=== PATIENT | male | born 1950 | race Caucasian/White ===

== ENCOUNTER → 2020-11-18 09:05 | Outpatient (BNVA) | payer MEDICARE, SELFPAY | PROVIDERS: Family Provider Nurse Practitioner Family; PCP Nurse Practitioner Family; Visit Provider Nurse Practitioner Family | DX: I10 Essential (primary) hypertension (principal); I48.0 Paroxysmal atrial fibrillation | CPT/HCPCS: 80053; 80061; 85025; 85610 ==

== ENCOUNTER → 2021-02-17 09:09 | Outpatient (BNVA) | payer OTHER, MEDICARE, SELFPAY | PROVIDERS: Family Provider Nurse Practitioner Family; PCP Nurse Practitioner Family; Visit Provider Nurse Practitioner Family | DX: R63.5 Abnormal weight gain (principal); Z79.899 Other long term (current) drug therapy; Z79.01 Long term (current) use of anticoagulants; I48.0 Paroxysmal atrial fibrillation | CPT/HCPCS: 80053; 84443; 85610 ==

== ENCOUNTER 2021-11-17 11:54 | Outpatient (CLI) | payer OTHER, MEDICARE, SELFPAY ==
--- NOTE | 2021-11-17 12:45 | USCV_ITS ---
Rolf Bowie Age: 71 Gender: M : 1950 Exam Date: 11/17/2021 12:29 Ordering Phys: Sara Parks MD ([email or web address]) Technologist: LUCY Exam Location: [facility] [place] Indication: Shortness of breath BP: 140 / 80 HR: 78 Rhythm: Sinus Technical Quality: Technically difficult study MEASUREMENTS (Male / Female) Normal Values 2D ECHO LVOT Diameter 2.0 cm LV Ejection Fraction MOD 2C 50.1 % LV Ejection Fraction 2C AL 51.1 % LA Diameter 3.7 cm LA Width 5.0 cm LA Height 5.1 cm Aorta at Sinotubular Diameter 2.5 cm M-MODE Aortic Annulus Diameter 2.7 cm LA Ao Ratio MM 1.4 MV E Point Septal Separation 0.4 cm DOPPLER AV Peak Velocity 161.0 cm/s LVOT Peak Velocity 74.0 cm/s AV Area Cont Eq vti 1.7 cm squared AV Area Cont Eq pk 1.4 cm squared MV Area PHT 4.3 cm squared MV E' Velocity 97.0 cm/s Mitral E to LV E' Septal Ratio 10.4 TR Peak Velocity 237.0 cm/s TR Peak Gradient 22.5 mmHg TV Peak E Velocity 56.0 cm/s Right Atrial Pressure 8.0 mmHg Pulmonary Artery Systolic Pressu 30.5 mmHg PV Peak Velocity 79.0 cm/s RV Acceleration Time 0.1 s RV Ejection Time 0.3 s RV AcT/ET 0.3 FINDINGS Left Ventricle Possibly normal LV size and ejection fraction. Could not evaluate for segmental wall motion because of the poor ultrasonic window Right Ventricle Right ventricle not well visualized. Right Atrium Right atrium appears to be mildly dilated Left Atrium Mildly increased left atrial size. Mitral Valve Thickened mitral valve. Mild mitral annular calcification. Aortic Valve Thickened aortic valve. Tricuspid Valve Tricuspid valve not well visualized. Pulmonic Valve Pulmonic valve not well visualized. Pericardium No pericardial effusion. Aorta Normal aortic annulus size. CONCLUSIONS Possibly normal LV size and ejection fraction. Could not evaluate for segmental wall motion because of the poor ultrasonic window. Thickened mitral valve. Mild mitral annular calcification. Mild biatrial enlargement Thickened aortic valve with features of aortic valve sclerosis. Technically difficult study because of the poor ultrasonic window. Dr Arline Rodriguez MD FACC (Electronically Signed) Final Date: 17 November 2021 14:15 S
== END 2021-11-17 11:55 | disposition home or self-care (01) ==
LOC: RAD 11:59
PROVIDERS: PCP Nurse Practitioner Family; Visit Provider Internal Medicine Cardiovascular Disease
DX: R06.02 Shortness of breath (principal); I08.0 Rheumatic disorders of both mitral and aortic valves
CPT/HCPCS: 93306

== ENCOUNTER → 2022-05-24 15:33 | Outpatient (BNVA) | payer OTHER, SELFPAY | PROVIDERS: PCP Nurse Practitioner Family; Visit Provider Internal Medicine | DX: I48.20 Chronic atrial fibrillation, unspecified (principal); I47.2 Ventricular tachycardia; E11.9 Type 2 diabetes mellitus without complications; I25.5 Ischemic cardiomyopathy; Z87.891 Personal history of nicotine dependence | CPT/HCPCS: 99214 ==

== ENCOUNTER → 2022-07-05 09:23 | Outpatient (BNVA) | payer MEDICARE, SELFPAY | PROVIDERS: PCP Nurse Practitioner Family; Visit Provider Nurse Practitioner Family | DX: I10 Essential (primary) hypertension (principal); E78.5 Hyperlipidemia, unspecified; Z23 Encounter for immunization; Z79.01 Long term (current) use of anticoagulants | CPT/HCPCS: 80053; 80061; 85025 ==

== ENCOUNTER → 2023-05-05 09:31 | Outpatient (BNVA) | payer MEDICARE, SELFPAY | PROVIDERS: PCP Nurse Practitioner Family; Visit Provider Nurse Practitioner Family | DX: I25.118 Atherosclerotic heart disease of native coronary artery with other forms of angina pectoris (principal); I10 Essential (primary) hypertension; I48.0 Paroxysmal atrial fibrillation; Z79.01 Long term (current) use of anticoagulants; Z87.891 Personal history of nicotine dependence | CPT/HCPCS: 99214 ==

== ENCOUNTER → 2023-08-03 13:23 | Outpatient (BNVA) | payer OTHER, SELFPAY | PROVIDERS: PCP Nurse Practitioner Family; Visit Provider Nurse Practitioner Family | DX: L57.0 Actinic keratosis (principal); L30.0 Nummular dermatitis; L57.8 Other skin changes due to chronic exposure to nonionizing radiation; D22.39 Melanocytic nevi of other parts of face | CPT/HCPCS: 17000; 99214 ==

== ENCOUNTER → 2023-11-09 15:42 | Outpatient (BNVA) | payer OTHER, SELFPAY | PROVIDERS: PCP Nurse Practitioner Family; Visit Provider Internal Medicine | DX: I48.0 Paroxysmal atrial fibrillation (principal); I10 Essential (primary) hypertension; I25.118 Atherosclerotic heart disease of native coronary artery with other forms of angina pectoris; Z87.891 Personal history of nicotine dependence; Z79.01 Long term (current) use of anticoagulants | CPT/HCPCS: 99214 ==

== ENCOUNTER 2023-12-19 18:15 | Emergency (ER) | payer OTHER, SELFPAY ==
[2023-12-19 18:35] VITALS: BP 170/82; PULSE 54; RESP 17; TEMP 36.7; O2SAT 91; BMI 42.3
--- NOTE | 2023-12-19 18:43 | ECG_ITS ---
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 Measurements Intervals [place] Rate: 49 P: 0 TX: 0 QRS: -5 QRSD: 98 T: 99 QT: 427 QTc: 389 Interpretive Statements ATRIAL FIBRILLATION WITH SLOW VENTRICULAR RESPONSE LOW QRS VOLTAGE IN EXTREMITY LEADS [QRS DEFLECTION < 0.5 mV IN LIMB LEADS] MINIMAL ST DEPRESSION [0.025+ mV ST DEPRESSION] ABNORMAL QRS-T ANGLE [QRS-T AXIS DIFFERENCE > 60] Compared to ECG 06/15/2018 05:47:06 Low QRS voltage now present ST (T wave) deviation still present Electronically Signed On 12-20-2023 9:17:07 CDT by Reynaldo Freire M.D. [id number]
--- NOTE | 2023-12-19 18:43 | XRR_ITS ---
PROCEDURE INFORMATION: Exam: XR Chest Exam date and time: 12/19/2023 6:47 PM Age: 73 years old Clinical indication: Shortness of breath; Additional info: Dyspnea TECHNIQUE: Imaging protocol: Radiologic exam of the chest. Views: 1 view. COMPARISON: CR XR chest 1V [id number] 06/13/2018 4:20 AM FINDINGS: Lungs: Stable mild interstitial prominence, chronic. No consolidation. Pleural spaces: No pleural effusion or pneumothorax. Heart/Mediastinum: Heart size is within normal limits. Vasculature: Atherosclerotic calcifications of the aorta are noted. Diaphragm: Stable elevation of the right hemidiaphragm. Bones/joints: Unremarkable. XR/XR chest 1V portable [id number] IMPRESSION: No acute cardiopulmonary disease.
[2023-12-19 19:11] LABS: Basophils % 0.4 %; Eosinophils # 0.2 10^3/uL (0.0-0.8); Eosinophils % 1.5 %; Hematocrit 45.5 % (37-53); Lymphocytes # 2.1 10^3/uL (0.8-4.8); Mean Corpuscular HGB Conc 33.8 g/dL (30-55); Mean Corpuscular Hemoglobin 29.4 pg (27-33); Mean Platelet Volume 10.6 fL (7.4-10.4); Monocytes % 8.6 %; Neutrophils # 7.79 10^3/uL (1.8-7.7); Neutrophils % 70.1 %; Nucleated Red Blood Cells % 0 %; Platelet Count 190 10^3/cmm (157-399); Red Blood Count 5.23 10^6/uL (3.85-5.65)
[2023-12-19 19:37] LABS: Alanine Aminotransferase 18 U/L (0-41); Alkaline Phosphatase 118 U/L (40-130); Aspartate Amino Transferase 15 U/L (0-40); Blood Urea Nitrogen 16 mg/dL (8-23); Calcium 9.8 mg/dL (8.5-10.5); Carbon Dioxide 28 mmol/L (22-29); Chloride 103 mmol/L (98-107); Creatinine Clr Calc Pharmacy 100.0368; Globulin 3.5 g/dL (1.3-4.6); Glucose 122 mg/dL (65-115); Osmolality Calculated 298 mOsm/kg (285-295); Sodium 143 mmol/L (136-145); Total Bilirubin 0.6 mg/dL (0.15-1.2); Total Protein 7.5 g/dL (6.6-8.7)
--- NOTE | 2023-12-19 20:03 | ED_ITS ---
HPI - SOB/Dyspnea 2 General: Chief Complaint: Shortness of Breath/Dyspnea Stated Complaint: Dizziness,SOB Time Seen by Provider: 12/19/23 18:44 History of Present Illness: HPI Narrative: Patient presents to the ER after being asleep on the floor wake up gasping choking for air. Patient has a history of doing this multiple times in the last couple days. Patient says that they have suggested [facility] but is has not [facility] that up yet. Patient does have a history of A-fib with cardiac stents. Patient says he gets them intermittently short of breath with exertion but denies chest pain. Patient denies any complaints at this time. Review of Systems 2 General: Reports: 10 or more systems reviewed and unremarkable except in HPI and below PFSH ED 2 PFSH: Medical History DISH (diffuse idiopathic skeletal hyperostosis) History of myocardial infarction Anxiety CAD (coronary artery disease) Atrial fibrillation HTN (hypertension) Surgical History S/P appendectomy S/P PTCA (percutaneous transluminal coronary angioplasty) S/P bilateral cataract extraction Family History Mother Hypertension Diabetes Father , MD age 49 Hypertension Myocardial infarction Other CAD (coronary artery disease) Social History Smoking and tobacco/nicotine status: former use of tobacco/nicotine Physical Exam 2 Const: COMMON NORMALS: no acute distress, average body habitus, patient oriented x3, no limitations, healthy appearing, alert and well nourished HENMT: COMMON NORMALS: normocephalic, atraumatic, hearing grossly normal bilaterally, external ears normal, Normal external nose present, moist oral mucous membranes and oropharynx normal HEAD & SCALP: normocephalic and atraumatic NOSE: Normal external nose present EXTERNAL EAR: Yes external ears normal Neck/C-Spine: COMMON NORMALS: full ROM, no lymphadenopathy, supple, no meningeal signs, no JVD and Thyroid normal THYROID: Thyroid normal Chest: COMMONS NORMALS: normal inspection of the chest and normal palpation of entire chest wall Resp: COMMON NORMALS: normal respiratory effort, No retractions, No use of accessory muscles and clear to auscultation bilaterally AUSCULTATION: clear to auscultation bilaterally Cardio: COMMON NORMALS: no JVD, regular rate, regular rhythm, S1 normal heart sound present, S2 normal heart sound present, No gallops present (Cardio), No clicks present (Cardio), No murmurs present (Cardio) and No rub (Cardio) R ATE: regular rate RHYTHM: regular rhythm HEART SOUNDS: S1 normal heart sound present and S2 normal heart sound present GI: COMMON NORMALS: Normal to inspection, nondistended, normoactive bowel sounds present, Soft to palpation, non-tender, No hepatosplenomegaly present and no masses PALPATION: Yes Soft to palpation and Yes No hepatosplenomegaly present Neuro: COMMON NORMALS: patient oriented x3 SENSORIUM/ORIENTATION: Yes alert MENINGEAL SIGNS: Yes no meningeal signs Course 2 Vital Signs: Vital signs: Vital Signs Temperature 98.0 F 12/19/23 18:35 Pulse Rate 54 L 12/19/23 18:35 Respiratory Rate 18 12/19/23 21:12 Blood Pressure 119/77 12/19/23 21:12 Pulse Oximetry 91 12/19/23 18:35 Oxygen Delivery Me thod Room Air 12/19/23 18:35 MDM - SOB/Dyspnea Medical Decision Making Case management was consulted for referral to pulmonology/sleep study for sleep apnea patient physical evaluation as well as lab work and chest x-ray, all of which was essentially benign. It sounds like patient's been having sleep apnea type episodes. Patient will be referred to pulmonology for sleep study. Patient be discharged from ER. Differential Diagnosis Unlikely acute exacerbation of chronic obstructive airways disease, congestive heart failure, community acquired pneumonia, asthma with exacerbation or pulmonary embolism Medical Records I reviewed the patient's medical records. Lab Data I reviewed the patient's lab results. 12/19/23 18:56 12/19/23 18:56 Labs/Radiology: Radiology Impressions Chest X-Ray 12/19/23 18:43 IMPRESSION: No acute cardiopulmonary disease. Laboratory Results WBC 11.10 10^3/uL (3.29-11.43) 12/19/23 18:56 RBC 5.23 10^6/uL (3.85-5.65) 12/19/23 18:56 Hgb 15.40 g/dL (11.27-16.99) 12/19/23 18:56 Hct 45.5 % (37-53) 12/19/23 18:56 MCV 87.0 fl (82-101) 12/19/23 18:56 MCH 29.4 pg (27-33) 12/19/23 18:56 MCHC 33.8 g/dL (30-55) 12/19/23 18:56 RDW 14.0 % (12.1-15.1) 12/19/23 18:56 Plt Count 190 10^3/cmm (157-399) 12/19/23 18:56 MPV 10.6 fL (7.4-10.4) H 12/19/23 18:56 Neut % (Auto) 70.1 % 12/19/23 18:56 Lymph % (Auto) 19.0 % 12/19/23 18:56 [place] % (Auto) 8.6 % 12/19/23 18:56 Eos % (Auto) 1.5 % 12/19/23 18:56 Baso % (Auto) 0.4 % 12/19/23 18:56 Neut # (Auto) 7.79 10^3/uL (1.8-7.7) H 12/19/23 18:56 Lymph # (Auto) 2.1 10^3/uL (0.8-4.8) 12/19/23 18:56 [place] # (Auto) 1.0 10^3/uL (0.2-0.9) H 12/19/23 18:56 Eos # (Auto) 0.2 10^3/uL (0.0-0.8) 12/19/23 18:56 Baso # (Auto) 0.0 10^3/uL (0.0-0.1) 12/19/23 18:56 Nucleated RBC % (auto) 0 % 12/19/23 18:56 Nucleated RBCs # 0.0 /100WBC 12/19/23 18:56 Sodium 143 mmol/L (136-145) 12/19/23 18:56 Potassium 4.0 mmol/L (3.5-5.1) 12/19/23 18:56 Chloride 103 mmol/L (98-107) 12/19/23 18:56 Carbon Dioxide 28 mmol/L (22-29) 12/19/23 18:56 Anion Gap 16.0 (5-19) 12/19/23 18:56 BUN 16 mg/dL (8-23) 12/19/23 18:56 Creatinine 0.6 mg/dL (0.7-1.2) L 12/19/23 18:56 GFR Calculation Not Reportable 12/19/23 18:56 Glucose 122 mg/dL (65-115) H 12/19/23 18:56 Calculated Osmolality 298 mOsm/kg (285-295) H 12/19/23 18:56 Calcium 9.8 mg/dL (8.5-10.5) 12/19/23 18:56 Total Bilirubin 0.6 mg/dL (0.15-1.2) 12/19/23 18:56 AST 15 U/L (0-40) 12/19/23 18:56 ALT 18 U/L (0-41) 12/19/23 18:56 Alkaline Phosphatase 118 U/L (40-130) 12/19/23 18:56 Total Protein 7.5 g/dL (6.6-8.7) 12/19/23 18:56 Albumin 4.0 g/dL (3.5-5.2) 12/19/23 18:56 Globulin 3.5 g/dL (1.3-4.6) 12/19/23 18:56 All radiology interpretation(s) finalized by discharge Discharge Plan Discharge Patient Disposition: Home Clinical Impression: Sleep apnea in adult, Breath shortness Condition: Stable Prescriptions: No Action cetirizine [Zyrtec] 10 mg tablet 10 mg PO DAILY amlodipine 5 mg tablet 5 mg PO .HS Qty: 90 3RF carvedilol 3.125 mg tablet 3.125 mg PO BID Qty: 180 3RF isosorbide mononitrate 30 mg tablet extended release 24 hr 30 mg PO DAILY Qty: 90 3RF losartan 100 mg tablet 150 mg PO DIRECTED Qty: 135 3RF Rx Instructions: 100mg AM and 50mg PM cholecalciferol (vitamin D3) 25 mcg (1,000 unit) capsule 25 mcg PO DAILY fluticasone propionate [Allergy Relief (fluticasone)] 50 mcg/actuation spray,suspension 1 spray intranasal DAILY Rx Instructions: administer into each nostril ipratropium bromide 42 mcg (0.06 %) spray,non-aerosol 2 spray intranasal BID Qty: 15 5RF Rx Instructions: Starting dose will be 2 puffs on each side of the nose twice daily. Can vary from once daily up to 4 times daily rivaroxaban 20 mg tablet 20 mg PO DAILY Qty: 90 3RF Rx Instructions: must administer with evening meal mupirocin 2 % ointment 1 applic topical BID Qty: 15 1RF alprazolam [Xanax] 0.25 mg tablet 0.25 mg PO DAILY PRN (Reason: anxiety) Qty: 30 0RF pravastatin 80 mg tablet 80 mg PO DAILY Qty: 90 1RF Discharge Orders: Discharge ED (Routine); Ordered 12/19/23 Ordered By: Rakesh Asif Referrals: Shaye Enrique FNP [Primary Care Provider] - 1 week Patient Instructions: Shortness of Breath (ED), Obstructive Sleep Apnea Activity Restrictions/Additional Instructions: Your evaluation in ER that included lab work, EKG and x-ray did not show any acute cause of your shortness of breath. Upon further discussion of your history it sounds like you may have sleep apnea. Case management has been consulted to refer you to pulmonology for sleep study. You may be receiving a call from them in the morning to arrange this. Otherwise please follow-up with your family proximal physician within the next 7 to 10 days for further evaluation treatment as needed. Coding Level of Care Code ED Safekeeping Clerk for Trav Pierce
[2023-12-19 21:11] VITALS: BP 119/77; RESP 18
[2023-12-19 21:12] VITALS: BP 119/77; RESP 18
--- NOTE | 2023-12-20 07:31 | DCPLANNER ---
Message sent to pulmonrudy for follow upand sleep study
== END 2023-12-19 21:14 | disposition home or self-care (01) ==
PROVIDERS: Emergency Provider Emergency Medicine; PCP Nurse Practitioner Family
DX: G47.30 Sleep apnea, unspecified (principal); R06.02 Shortness of breath; Z87.891 Personal history of nicotine dependence; I25.10 Atherosclerotic heart disease of native coronary artery without angina pectoris; I10 Essential (primary) hypertension; I25.2 Old myocardial infarction
CPT/HCPCS: 36415; 71045; 80053; 85025; 93005; 99285

== ENCOUNTER 2023-12-25 09:25 | Outpatient (CLI) | payer OTHER, SELFPAY ==
--- NOTE | 2023-12-25 10:22 | ECG_ITS ---
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 Interpretive Statements NAME OF STUDY: LEXISCAN SESTAMIBI STRESS TEST INDICATION: [CP/SOB, ] Procedure: At the baseline, the blood pressure was 153/95 mmHg with a heart rate of 52 bpm. The electrocardiogram showed atrial fibrillation with slow ventricular rate. No ST-T wave changes. The Lexiscan was infused over a period of 20 seconds. A total of 0.4 mg of Lexiscan was infused. The stress phase was continued for a total of 5 minutes. Heart rate was at the end of stress phase was 60 bpm and a blood pressure of 156/87 mmHg. The EKG at the peak infusion revealed atrial fibrillation. At 1 point patient had significant atrial fibrillation with slow ventricular rate and heart rate 21 bpm. This was transient. There was a pause of close to 4 seconds. Heart rate recovered. Sestamibi was injected 20 seconds after the Lexiscan infusion. Blood pressure at the end of recovery phase was 148/85 mmHg with a heart rate of 65 bpm. Conclusion: 1. No significant ST-T wave changes with Lexiscan infusion however patient had developed bradycardia with heart rate of 21 bpm transiently. It recovered quickly. 2. No Lexiscan induced chest pain or cardiac arrhythmia. 3. Normal blood pressure response. 4. Sestamibi/sestamibi perfusion scan pending; see separate report. Electronically Signed On 01-04-2024 12:07:17 CDT by Reynaldo Freire M.D. [id number]
--- NOTE | 2023-12-25 10:23 | NMCV_ITS ---
NM dawood perf SPECT r/s* [id number] Rolf Bowie Age: 73 Gender: M : 1950 Exam Date: 12/25/2023 10:51 Ordering Phys: Reynaldo Freire M.D ([email or web address]) Technologist: DRU Ward Exam Location: [facility] Indications: CHEST PAIN STRESS TEST [facility] IMAGE PROTOCOL Rest/Stress 1 Lexiscan Day Radiopharmaceutical Dose (mCi) Administration Site Administered by Rest: Tc-99m 10.6 IV DRU Muñoz Sestamibi Stress:Tc-99m 32.4 IV DRU Ward Sestamiолег Rest: 25-Dec-2023 60 Discovery 630 Stress: 25-Dec-2023 30 Discovery 630 0.4mg Lexiscan. Supine position only as patient was unable to lay prone. SPECT RESULTS Technical Quality: Excellent Raw Data Analysis: Normal Image Corrections: No attenuation or motion correction applied Summed Stress Score: 11 Summed Rest Score: 17 Summed Difference Score: 1 PERFUSION FINDINGS There is a large area of fixed perfusion defect in inferolateral wall. This is consistent with large area of prior infarct in left circumflex artery territory with minimal rachel-infarct ischemia. Large area fixed perfusion defect seen in the inferior wall consistent with large area of prior infarct with minimal rachel-infarct ischemia seen in the RCA territory. FUNCTIONAL RESULTS (calculated via Gated SPECT) Stress Image LV EF (%): 67 Stress EDV (mL):184 TID: 1.08 Stress ESV (mL):60 FUNCTIONAL FINDINGS: There is normal left ventricular systolic function. IMPRESSIONS 1. Large areas of prior infarct with minimal rachel-infarct ischemia seen in RCA and left circumflex artery territories 2. LV systolic function is normal Reynaldo Freire MD (Electronically Signed) Final Date: 26 December 2023 12:18 S
[2023-12-25] MEDS: regadenoson 0.4 Mg/5 ml Syringe 0.400000000000000022 MG IVP (11:57)
[2023-12-25 12:29] VITALS: BP 153/45; PULSE 58
== END 2023-12-25 09:26 | disposition home or self-care (01) ==
PROVIDERS: PCP Nurse Practitioner Family; Visit Provider Internal Medicine
DX: I48.0 Paroxysmal atrial fibrillation (principal)
CPT/HCPCS: 36415; 78452; 93017; 96374; A9500; J2785

== ENCOUNTER → 2023-12-27 15:32 | Outpatient (BNVA) | payer OTHER, SELFPAY | PROVIDERS: PCP Nurse Practitioner Family; Referring Provider Nurse Practitioner Family; Visit Provider Internal Medicine | DX: R00.1 Bradycardia, unspecified (principal); R94.39 Abnormal result of other cardiovascular function study; I48.91 Unspecified atrial fibrillation | CPT/HCPCS: 93246 ==

== ENCOUNTER 2024-05-13 20:00 | Outpatient (CLI) | payer OTHER, SELFPAY | END 2024-05-13 20:01 | disposition home or self-care (01) | LOC: SLEEP 05-14 03:46 | PROVIDERS: PCP Nurse Practitioner Family; Visit Provider Emergency Medicine Emergency Medical Services | DX: G47.33 Obstructive sleep apnea (adult) (pediatric) (principal) | CPT/HCPCS: 95810 ==

== ENCOUNTER 2024-07-16 20:00 | Outpatient (CLI) | payer MEDICARE, SELFPAY | END 2024-07-16 20:01 | disposition home or self-care (01) | LOC: SLEEP 21:20 | PROVIDERS: PCP Nurse Practitioner Family; Visit Provider Emergency Medicine Emergency Medical Services | DX: G47.33 Obstructive sleep apnea (adult) (pediatric) (principal); Z99.89 Dependence on other enabling machines and devices | CPT/HCPCS: 95811 ==

== ENCOUNTER → 2024-08-07 14:57 | Outpatient (BNVA) | payer OTHER, SELFPAY | PROVIDERS: PCP Nurse Practitioner Family; Visit Provider Internal Medicine | DX: I48.0 Paroxysmal atrial fibrillation (principal); I10 Essential (primary) hypertension; I25.118 Atherosclerotic heart disease of native coronary artery with other forms of angina pectoris | CPT/HCPCS: 99214 ==

== ENCOUNTER 2024-08-07 16:27 | Outpatient (CLI) | payer OTHER, SELFPAY ==
--- NOTE | 2024-08-07 16:30 | XRR_ITS ---
PROCEDURE INFORMATION: Exam: XR Cervical Spine Exam date and time: 08/07/2024 4:39 PM Age: 74 years old Clinical indication: Patient HX: Cervicalgia and pain in the right shoulder for the last 2 weeks. ; Additional info: M54.2 - cervicalgia TECHNIQUE: Imaging protocol: Radiologic exam of the cervical spine. Views: 2 or 3 views. COMPARISON: CR XR chest 1V portable [id number] 12/19/2023 6:47 PM FINDINGS: Bones/joints: Diffuse degenerative change of the cervical spine. Near-complete loss of teeth. Soft tissues: Unremarkable. Vasculature: Heavy atherosclerotic disease of the bilateral carotid bulbs. XR/XR cervical spine 3V* [id number] IMPRESSION: 1. Degenerative changes of the cervical spine without acute findings. 2. 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
== END 2024-08-07 16:28 | disposition home or self-care (01) ==
LOC: RAD 16:27
PROVIDERS: PCP Nurse Practitioner Family; Visit Provider Nurse Practitioner Family
DX: M50.30 Other cervical disc degeneration, unspecified cervical region (principal); I65.23 Occlusion and stenosis of bilateral carotid arteries
CPT/HCPCS: 72040

== ENCOUNTER → 2025-04-23 15:18 | Outpatient (BNVA) | payer MEDICARE, SELFPAY | PROVIDERS: PCP Nurse Practitioner Family; Visit Provider Nurse Practitioner Family | DX: L57.8 Other skin changes due to chronic exposure to nonionizing radiation (principal); L81.4 Other melanin hyperpigmentation; D22.0 Melanocytic nevi of lip; L30.9 Dermatitis, unspecified; L82.0 Inflamed seborrheic keratosis; R58 Hemorrhage, not elsewhere classified; R20.8 Other disturbances of skin sensation; Z78.9 Other specified health status; L29.89 Other pruritus; L53.8 Other specified erythematous conditions; L57.0 Actinic keratosis | CPT/HCPCS: 11104; 11105; 17000; 17110; 99213 ==

== ENCOUNTER → 2025-05-06 09:02 | Outpatient (BNVA) | payer OTHER, SELFPAY | PROVIDERS: PCP Nurse Practitioner Family; Visit Provider Internal Medicine Cardiovascular Disease | DX: I25.10 Atherosclerotic heart disease of native coronary artery without angina pectoris (principal); I48.91 Unspecified atrial fibrillation; Z79.01 Long term (current) use of anticoagulants; I10 Essential (primary) hypertension; R45.89 Other symptoms and signs involving emotional state; G47.30 Sleep apnea, unspecified; B02.9 Zoster without complications; Z98.61 Coronary angioplasty status; Z87.891 Personal history of nicotine dependence; I25.2 Old myocardial infarction | CPT/HCPCS: 99214 ==

== ENCOUNTER → 2025-06-11 14:42 | Outpatient (BNVA) | payer OTHER, SELFPAY | PROVIDERS: PCP Nurse Practitioner Family; Visit Provider Nurse Practitioner Family | DX: I87.2 Venous insufficiency (chronic) (peripheral) (principal); L57.8 Other skin changes due to chronic exposure to nonionizing radiation; L81.4 Other melanin hyperpigmentation; D22.39 Melanocytic nevi of other parts of face; L82.1 Other seborrheic keratosis; M31.0 Hypersensitivity angiitis; L57.0 Actinic keratosis | CPT/HCPCS: 17000; 99213 ==

== ENCOUNTER 2025-08-25 15:32 | Outpatient (CLI) | payer MEDICARE, SELFPAY ==
--- NOTE | 2025-08-25 15:30 | USR_ITS ---
PROCEDURE INFORMATION: Exam: US Retroperitoneal, Complete, Kidneys, Aorta, IVC. Exam date and time: 08/25/2025 3:59 PM Age: 75 years old Clinical indication: Other: Hematuria; Additional info: R31.9 - hematuria, unspecified, R/O kidney stone TECHNIQUE: Imaging protocol: Real-time ultrasound of the retroperitoneum with image documentation. Complete exam focused on the bilateral kidneys, aorta, and inferior vena cava. COMPARISON: No relevant prior studies available. FINDINGS: Right kidney: No stones. No hydronephrosis. Left kidney: No stones. No hydronephrosis. Aorta: Normal. No aneurysm. Common iliac arteries: Normal. Inferior vena cava: Normal. US/US renal BI* [id number] IMPRESSION: No acute findings.
== END 2025-08-25 15:33 | disposition home or self-care (01) ==
LOC: RAD 15:32
PROVIDERS: PCP Nurse Practitioner Family; Visit Provider Nurse Practitioner Family
DX: R31.9 Hematuria, unspecified (principal); N39.0 Urinary tract infection, site not specified
CPT/HCPCS: 76770; 80053; 81000; 85025; 87086

== ENCOUNTER → 2025-08-28 14:21 | Outpatient (BNVA) | payer MEDICARE, SELFPAY | PROVIDERS: PCP Nurse Practitioner Family; Visit Provider Nurse Practitioner Family | DX: Z12.5 Encounter for screening for malignant neoplasm of prostate (principal); R31.0 Gross hematuria | CPT/HCPCS: 80053; 85025; G0103 ==

== ENCOUNTER → 2025-09-05 14:14 | Outpatient (BNVA) | payer MEDICARE, SELFPAY | PROVIDERS: PCP Nurse Practitioner Family; Visit Provider Nurse Practitioner Family | DX: R31.9 Hematuria, unspecified (principal) | CPT/HCPCS: 81000 ==